=== PATIENT | male | born 1980 | race African-American/Black ===

== ENCOUNTER 2016-06-06 18:20 | Emergency (ER) | payer OTHER ==
[~2016-06-06] VITALS: Ht 165.1 cm; Wt 65.8 kg
[~2016-06-06 18:20] MED LIST: DIVA250T4 PO; MULT-246 PO; PROM25TA10 PO
[2016-06-06 20:18] LABS: BASO # 0.1 x10^3/uL (0.0-0.2); BASO % 1 % (0-3); EOS % 2 % (0-3); HEMATOCRIT 42.7 % (39.0-53.0); HEMOGLOBIN 14.2 g/dL (13.0-17.5); LYMPH # 3.2 x10^3/uL (1.0-4.8); LYMPH % 36 % (24-48); MEAN CORPUSCULAR HEMOGLOBIN 30 pg (25-35); MEAN CORPUSCULAR HGB CONC 33 g/dL (31-37); MEAN CORPUSCULAR VOLUME 91 fL (79-100); MONO % 7 % (0-9); NEUT % 54 % (31-73); PLATELET COUNT 205 x10^3/uL (140-400); RED BLOOD COUNT 4.71 x10^6/uL (4.30-5.70); RED CELL DISTRIBUTION WIDTH 13.7 % (11.5-14.5); WHITE BLOOD COUNT 8.9 x10^3/uL (4.0-11.0)
[2016-06-06] MEDS ORDERED: IV NORMAL SALINE 1000ML BAG 1,000 ML IV SCH (20:30)
[2016-06-06] MEDS ORDERED: ONDANSETRON PF 4 MG/2 ML VIAL. IV ONE (20:30)
[2016-06-06] MEDS ORDERED: KETOROLAC TROMETHAMINE 30 MG/ML SYRINGE. IV ONE (20:30)
[2016-06-06] MEDS ORDERED: MULT1TAB52 PO (20:53)
[2016-06-06] MEDS ORDERED: LORA10TA3 PO (20:54)
[2016-06-06] MEDS ORDERED: DIVA500T9 PO (20:55)
[2016-06-06 21:42] LABS: CALCIUM 9.1 mg/dL (8.5-10.1); CREATININE 0.9 mg/dL (0.7-1.3); GFR 116.2; POTASSIUM 3.9 mmol/L (3.5-5.1)
[2016-06-06 21:47] LABS: ALBUMIN 3.7 g/dL (3.4-5.0); TOTAL BILIRUBIN 0.5 mg/dL (0.2-1.0); TOTAL PROTEIN 7.4 g/dL (6.4-8.2)
--- NOTE | 2016-06-06 22:59 | ED.ADGEN ---
Past Medical History Past Medical History: Other Additional Past Medical Histor: autism, silent seizures Past Surgical History: No Surgical History Alcohol Use: None Drug Use: None Adult General Chief Complaint Chief Complaint: ABDOMINAL PAIN HPI HPI Patient is a 36 year old man, history of autism, seizure disorder, who presents to the emergency department with a complaint of abdominal pain for the past several months. Patient's mother is at bedside. Patient has had previous episodes of this right-sided abdominal pain evaluated, possibly constipation per mothers report. She states the patient be in complaining of pain earlier today. This pain has not been discussed with a primary care provider, Dr. Doss, patient's evaluation was in the emergency department approximate 4 months ago. At this time the patient is resting comfortably, vital signs within normal limits on the monitor. Denies any vomiting, still has, was 2 days ago. Does not believe there is any blood in the stool. Patient will nod head and say yes and no to questions. Points to the right upper quadrant at the location of his pain. No fevers, no chills, no rashes, no recent travel or surgery. Patient's mother states that eating and drinking well, and uses a lot of hot sauce. Review of Systems Review of Systems Constitutional: Denies fever or chills. [] Eyes: Denies change in visual acuity. [] HENT: Denies nasal congestion or sore throat. [] Respiratory: Denies cough or shortness of breath. [] Cardiovascular: Denies chest pain or edema. [] GI: Right-sided abdominal pain, no nausea, vomiting, bloody stools or diarrhea. Constipation. : Denies dysuria. [] Musculoskeletal: Denies back pain or joint pain. [] Integument: Denies rash. [] Neurologic: Denies headache, focal weakness or sensory changes. [] Endocrine: Denies polyuria or polydipsia. [] Lymphatic: Denies swollen glands. [] Psychiatric: Denies depression or anxiety. [] Current Medications Current Medications Current Medications Medications (Trade) Dose Ordered Sig/Rajani Start Time Stop Time Status Last Admin Dose Admin Ketorolac Tromethamine (Toradol) 10 mg 1X ONCE 06/06/16 20:30 06/06/16 20:31 DC 06/06/16 20:32 10 MG Ondansetron HCl (Zofran) 4 mg 1X ONCE 06/06/16 20:30 3/24/17 20:31 DC 06/06/16 20:31 4 MG Sodium Chloride (Iv Sodium Chloride 0.9% 1000ml Bag) 1,000 ml @ 1,000 mls/hr Q1H 06/06/16 20:30 06/06/16 21:29 DC Allergies Allergies Allergies Coded Allergies Type Severity Reaction Last Updated Verified No Known Drug Allergies 06/27/14 No Physical Exam Physical Exam Constitutional: Well developed, well nourished, no acute distress, non-toxic appearance. [] HENT: Normocephalic, atraumatic, bilateral external ears normal, oropharynx moist, no oral exudates, nose normal. [] Eyes: PERRLA, EOMI, conjunctiva normal, no discharge. [] Neck: Normal range of motion, no tenderness, supple, no stridor. [] Cardiovascular:Heart rate regular rhythm, no murmur , S1, S2, rubs or gallops. [ ] Lungs & Thorax: Bilateral breath sounds clear to auscultation , no wheezing, rhonchi, rales. No chest tenderness or crepitus. [] Abdomen: Bowel sounds normal, soft, mild tenderness palpation in the right upper quadrant and mid right abdominal region, no rebound, rigidity, no guarding , no masses, no pulsatile masses. [] Skin: Warm, dry, no erythema, no rash. [] Back: No tenderness, no CVA tenderness. [] Extremities: No tenderness, no cyanosis, no clubbing, ROM intact, no edema. [] Neurologic: Alert and oriented X 3, normal motor function, normal sensory function, no focal deficits noted. [] Psychologic: Affect normal, judgement normal, mood normal. [] Current Patient Data Vital Signs Vital Signs Date Time Temp Pulse Resp B/P Pulse Ox O2 Delivery O2 Flow Rate FiO2 06/06/16 23:30 63 114/62 96 Room Air 06/06/16 19:10 98.7 20 98.7 Lab Values Laboratory Tests Test 06/06/16 20:05 06/06/16 21:15 White Blood Count 8.9x10^3/uL (4.0-11.0) Red Blood Count 4.71x10^6/uL (4.30-5.70) Hemoglobin 14.2g/dL (13.0-17.5) Hematocrit 42.7% (39.0-53.0) Mean Corpuscular Volume 91fL (79-100) Mean Corpuscular Hemoglobin 30pg (25-35) Mean Corpuscular Hemoglobin Concent 33g/dL (31-37) Red Cell Distribution Width 13.7% (11.5-14.5) Platelet Count 205x10^3/uL (140-400) Neutrophils (%) (Auto) 54% (31-73) Lymphocytes (%) (Auto) 36% (24-48) Monocytes (%) (Auto) 7% (0-9) Eosinophils (%) (Auto) 2% (0-3) Basophils (%) (Auto) 1% (0-3) Neutrophils # (Auto) 4.8x10^3uL (1.8-7.7) Lymphocytes # (Auto) 3.2x10^3/uL (1.0-4.8) Monocytes # (Auto) 0.7x10^3/uL (0.0-1.1) Eosinophils # (Auto) 0.1x10^3/uL (0.0-0.7) Basophils # (Auto) 0.1x10^3/uL (0.0-0.2) Sodium Level 142mmol/L (136-145) Potassium Level 3.9mmol/L (3.5-5.1) Chloride Level 104mmol/L (98-107) Carbon Dioxide Level 28mmol/L (21-32) Anion Gap 10 (6-14) Blood Urea Nitrogen 19mg/dL (8-26) Creatinine 0.9mg/dL (0.7-1.3) Estimated GFR (Cockcroft-Gault) 116.2 BUN/Creatinine Ratio 21 (6-20) H Glucose Level 78mg/dL (70-99) Calcium Level 9.1mg/dL (8.5-10.1) Total Bilirubin 0.5mg/dL (0.2-1.0) Aspartate Amino Transferase (AST) 16U/L (15-37) Alanine Aminotransferase (ALT) 24U/L (16-63) Alkaline Phosphatase 65U/L (46-116) Total Protein 7.4g/dL (6.4-8.2) Albumin 3.7g/dL (3.4-5.0) Albumin/Globulin Ratio 1.0 (1.0-1.7) Lipase 119U/L (73-393) Laboratory Tests 06/06/16 20:05 Laboratory Tests 06/06/16 21:15 EKG EKG ECG: [] Sinus rhythm, heart rate 84 beats/minute, no ectopy. As interpreted by me. Radiology/Procedures Radiology/Procedures Abdominal series: 3 view: Normal cardiopulmonary silhouette, no traits, no effusions, no soft tissue or bony abnormalities identified in the chest, no free air, patient with large amounts of stool throughout, also bowel gas, evidence of constipation, no evidence of obstruction. As interpreted by me. [] Impressions: [id number] [place], [place] [id number] IMAGING REPORT Signed PATIENT: NICK DAVENPORT ACCOUNT: [id number] : 1980 LOCATION: ER AGE: 36 SEX: M EXAM STATUS: REG ER ORD. PHYSICIAN: RIK SHEA DO REASON: RUQ pain PROCEDURE: ABDOMEN LTD PROCEDURE Limited abdominal ultrasound. HISTORY Intermittent right-sided pain per mother. Patient is nonverbal. No nausea, vomiting, diarrhea. TECHNIQUE Real-time ultrasound imaging of the right upper quadrant of the abdomen is performed. COMPARISON None. FINDINGS Visualized pancreas homogeneous. The abdominal aorta is normal caliber. The liver is homogeneous. Ultrasound is not sensitive for detection of focal lesions. Portal flow is hepatopetal. Right hepatic lobe measures 14.9 cm, normal. Right kidney length is 8.7 cm. There is no hydronephrosis. The gallbladder is contracted, patient has limited NPO status. No gallbladder wall thickening. No cholelithiasis. Common bile duct is normal measuring 2 millimeters. IMPRESSION Unremarkable right upper quadrant ultrasound. Electronically signed by: Arash Aguilar MD (Jun 06, 2016 23:00:30) DICTATED and SIGNED BY: ARASH AGUILAR MD DATE: 06/06/16 2300 CC: SHIRLEY DOSS; RIK SHEA DO ~ Course & Med Decision Making Course & Med Decision Making Pertinent Labs and Imaging studies reviewed. (See chart for details) Patient well-appearing, point to his right upper quadrant region as his location of pain. He is a limited historian based on his baseline interaction, with autism. However he is engaging, and will not his head when asked dislocation his pain. I discussed with mother, patient's history is suspicious for constipation with his previous evaluation. We will obtain laboratory studies , ultrasound of the right or quadrant and acute abdominal series x-ray. She is agreeable this plan as is he. Patient received IV fluids in the ED, despite this he was unable to produce a urine sample during his time in the ED. Denies any issues with passing urine at home, any urinary complaints. Ultrasound reveals no concerning findings, acute abdominal x-rays reveal constipation. I did discuss this with patient and mother bedside, patient is taking by mouth fluids in the ED without issue now that he has been cleared. Discussed at bedside use of dietary adjustments, stay well-hydrated, use of MiraLAX, follow- up with her primary care provider, and referral to GI for additional evaluation as needed. No concerning findings have been identified during the patient's evaluation today. I believe that he is appropriate for discharge home and additional outpatient follow-up, patient's mother is in agreement with this plan. Prescription for MiraLAX given along with dietary instructions and recommendations as stated, along with clear and equal return instructions with which mother voices understanding and agreement. Patient discharged home in stable condition with prescription for MiraLAX and plan as above. Dragon Disclaimer Dragon Disclaimer This electronic medical record was generated, in whole or in part, using a voice recognition dictation system. Departure Impression: Primary Impression: Constipation Disposition: ADMITTED INPATIENT Condition: IMPROVED Scripts Polyethylene Glycol 3350 (Miralax)119 Gm Powder1 Tbs PO DAILY PRN CONSTIPATION # 60 GM Prov:RIK SHEA DO 06/06/16 RIK SHEA DO Jun 06, 2016 22:59
[2016-06-06 23:30] VITALS: BP 114/62
[2016-06-06] MEDS ORDERED: POLY119P4 PO (23:53)
--- NOTE | 2016-06-07 08:20 | RAD ---
Indication right lower quadrant pain for one month. A single view of the chest was obtained as well as flat and upright films of the abdomen. The chest is compared to a study 11/05/2008. No prior plain film imaging of the abdomen is available. Note is made of a CT examination of the abdomen and pelvis 06/27/2014. The heart and pulmonary vessels appear normal. The mediastinum has a normal appearance. The lungs are clear. There is no free air. The abdominal gas pattern is normal. A moderately large amount of stool is noted in the large bowel. No organomegaly or abnormal calculi are seen. Mild to moderate scoliosis is noted. IMPRESSION: No acute finding seen in the chest or abdomen on plain films
== END 2016-06-07 00:06 | disposition home or self-care (01) ==
LOC: ER 18:20
DX: K59.00 Constipation, unspecified (principal)
CPT/HCPCS: 74022; 76705; 80053; 83690; 85027; 96374; 96375; 99285; J1885; J2405; 36415